=== PATIENT | male | born 1995 | race Caucasian/White ===

== ENCOUNTER 2017-11-24 16:07 | Emergency (ER) | payer BC ==
[~2017-11-24] VITALS: Ht 180.3 cm; Wt 64.0 kg
[2017-11-24 16:26] VITALS: TEMP 36.8
[2017-11-24] MEDS ORDERED: SODIUM CHLORIDE 0.9% 1000ML 1,000 ML IV STA (16:40)
--- NOTE | 2017-11-24 16:45 | EMERGENCY ROOM VISIT NOTE ---
History Report prepared by José Miguel: Gerson Reyes Under the Supervision of: Dr. Erwin Cabral D.O. First contact with patient: 16:31 Chief Complaint: REFERRED BY DOCTOR Stated Complaint: A-FIB, REFERRED BY DOC History of Present Illness The patient is a 22 year old male who presents to the Emergency Room due to intermittent "episodes of atrial fibrillation" that began recently. Patient states he was referred to the ER by his PCP. Patient states he started seeing a psychiatrist for his anxiety a month ago and was prescribed on Strattera and Bupropion. He states he began feeling sick on the medication and decided to go back to his psychiatrist. He states on his follow-up visit he had "a high blood pressure" which he was told to get looked at. Patient states he then stopped taking the Bupropion for a few days which resolved his palpitations. He states after starting back up on it at 1/2 dose the symptoms came back. Patient's states he wears a heart monitor. Patient denies a history of similar symptoms. Patient states he has been in [employer] for 2 months. Family history includes heart problems. Patient denies alcohol or drug use. He denies nausea, vomiting, and thyroid issues. Source of History: patient Onset: Recent Position: chest Timing: intermittent Modifying Factors (Worsening): other (Bupropion) Modifying Factors (Relieving): other (None) Associated Symptoms: No nausea, No vomiting Review of Systems See HPI for pertinent positives & negatives. A total of 10 systems reviewed and were otherwise negative. Past Medical & Surgical Medical Problems: (1) Anxiety Family History Heart disease Social History Smoking Status: Never Smoker Current/Historical Medications Scheduled Antacid (Antacid), 1 TAB PO PRN Atomoxetine (Strattera), 1 CAP PO QAM Bupropion (Wellbutrin), 75 MG PO DAILY Allergies Coded Allergies: No Known Allergies (Unverified , 11/24/17) Physical Exam Vital Signs Date Time Temp Pulse Resp B/P (MAP) Pulse Ox O2 Delivery O2 Flow Rate FiO2 11/24/17 19:09 86 16 122/78 100 11/24/17 18:00 80 18 126/81 100 Room Air 11/24/17 17:04 105 11/24/17 17:00 98 Room Air 11/24/17 17:00 98 Room Air 11/24/17 16:26 36.8 97 18 147/92 98 Room Air Physical Exam GENERAL: Patient is awake, alert, and in no acute distress. Patient is resting comfortably and showing no signs of anxiety EYES: The conjunctivae are clear. The pupils are round and reactive. EARS, NOSE, MOUTH AND THROAT: The nose is without any evidence of any deformity. Mucous membranes are moist. Tongue is midline NECK: The neck is nontender and supple. RESPIRATORY: Normal respiratory effort is noted. There is no evidence of wheezing rhonchi or rales to auscultation. CARDIOVASCULAR: Irregular rhythm to auscultation noted but normal rate. No definite murmur appreciated. There no rubs or gallops normal S1 normal S2 GASTROINTESTINAL: The abdomen is soft. Bowel sounds are present in all quadrants. Abdomen is nontender. MUSCULOSKELETAL/EXTREMITIES: There is no evidence of gross deformity. Full range of motion is noted in the hips and shoulders. SKIN: There is no obvious evidence of any rash. There are no petechiae, pallor or cyanosis noted. NEUROLOGIC: Patient is awake alert and oriented x3. [Strength is symmetric. Patellar reflexes are 2+ bilaterally.] Medical Decision & Procedures ER Provider Diagnostic Interpretation: Radiology results as stated below per my review and radiologist interpretation: SINGLE VIEW CHEST CLINICAL HISTORY: Weakness. Change in mental status. FINDINGS: An AP, portable, upright chest radiograph is obtained. No prior studies are available for comparison at the time of dictation. The cardiomediastinal silhouette is unremarkable. The lungs and pleural spaces are clear. No pneumothorax is seen. The bony thorax is grossly intact. IMPRESSION: No active disease in the chest. Electronically signed by: Dann Mclaughlin M.D. 11/24/2017 5:33 PM Laboratory Results 11/24/17 17:05 Red Blood Count 4.58, Mean Corpuscular Volume 87.1, Mean Corpuscular Hemoglobin 30.6, Mean Corpuscular Hemoglobin Concent 35.1, Mean Platelet Volume 10.2, Neutrophils (%) (Auto) 64.1, Lymphocytes (%) (Auto) 25.2, Monocytes (%) (Auto) 6.1, Eosinophils (%) (Auto) 4.0, Basophils (%) (Auto) 0.3, Neutrophils # (Auto) 4.38, Lymphocytes # (Auto) 1.72, Monocytes # (Auto) 0.42, Eosinophils # (Auto) 0.27, Basophils # (Auto) 0.02 11/24/17 17:05 Test 11/24/17 17:05 White Blood Count 6.83 K/uL (4.8-10.8) Red Blood Count 4.58 M/uL (4.7-6.1) Hemoglobin 14.0 g/dL (14.0-18.0) Hematocrit 39.9 % (42-52) Mean Corpuscular Volume 87.1 fL (80-100) Mean Corpuscular Hemoglobin 30.6 pg (25-34) Mean Corpuscular Hemoglobin Concent 35.1 g/dl (32-36) Platelet Count 207 K/uL (130-400) Mean Platelet Volume 10.2 fL (7.4-10.4) Neutrophils (%) (Auto) 64.1 % Lymphocytes (%) (Auto) 25.2 % Monocytes (%) (Auto) 6.1 % Eosinophils (%) (Auto) 4.0 % Basophils (%) (Auto) 0.3 % Neutrophils # (Auto) 4.38 K/uL (1.4-6.5) Lymphocytes # (Auto) 1.72 K/uL (1.2-3.4) Monocytes # (Auto) 0.42 K/uL (0.11-0.59) Eosinophils # (Auto) 0.27 K/uL (0-0.5) Basophils # (Auto) 0.02 K/uL (0-0.2) RDW Standard Deviation 38.4 fL (36.4-46.3) RDW Coefficient of Variation 12.1 % (11.5-14.5) Immature Granulocyte % (Auto) 0.3 % Immature Granulocyte # (Auto) 0.02 K/uL (0.00-0.02) Prothrombin Time 11.0 SECONDS (9.0-12.0) Prothromb Time International Ratio 1.0 (0.9-1.1) Activated Partial Thromboplast Time 28.4 SECONDS (21.0-31.0) Partial Thromboplastin Ratio 1.1 Anion Gap 5.0 mmol/L (3-11) Est Creatinine Clear Calc Drug Dose 103.9 ml/min Estimated GFR () 121.8 Estimated GFR (Non- 105.1 BUN/Creatinine Ratio 14.5 (10-20) Calcium Level 8.6 mg/dl (8.5-10.1) Magnesium Level 2.3 mg/dl (1.8-2.4) Total Bilirubin 0.4 mg/dl (0.2-1) Direct Bilirubin 0.1 mg/dl (0-0.2) Aspartate Amino Transf (AST/SGOT) 17 U/L (15-37) Alanine Aminotransferase (ALT/SGPT) 21 U/L (12-78) Alkaline Phosphatase 76 U/L (45-117) Troponin I < 0.015 ng/ml (0-0.045) Total Protein 8.4 gm/dl (6.4-8.2) Albumin 4.3 gm/dl (3.4-5.0) Thyroid Stimulating Hormone (TSH) 0.763 uIu/ml (0.300-4.500) Laboratory results per my review. Medications Administered Medications (Trade) Dose Ordered Sig/Stephanie Route Start Time Stop Time Status Last Admin Dose Admin Sodium Chloride 1,000 ml @ 999 mls/hr Q1H1M STAT IV 11/24/17 16:40 11/24/17 17:40 DC 11/24/17 17:12 999 MLS/HR ECG Per My Interpretation Indication: palpitations Rate (beats per minute): 95 Rhythm: sinus rhythm Findings: PAC, other (No acute ST segment abnormalities) Comparison ECG Date: no prior available ED Course 1633: The patient was evaluated in room C7. A complete history and physical examination were performed. 1640: NSS 1,000 ml @ 999 mls/hr IV 1855: Upon reevaluation, the patient is resting comfortably. I discussed the results and treatment plan with him. He verbalized agreement of the treatment plan. He was discharged home. Medical Decision Prior records/ancillary studies reviewed. Triage Nursing notes reviewed. The patient's history was concerning for palpitations. Differential diagnosis: Etiologies such as premature contractions, electrolyte abnormality, cardiac dysrhythmia, thyroid dysfunction, pulmonary embolism, infection, gastrointestinal, as well as others were entertained. The patient is a 22-year-old male who presented to the emergency department for an evaluation of palpitations. The patient had a Holter monitor and was found to have an episode which they thought was consistent with A. fib. He was sent to the emergency department by his primary care physician. The patient was found to be in sinus rhythm. I discussed patient's laboratory and radiographic studies with him. He was treated with IV fluids. I discussed his case with the on-call [facility] bilingual spanish inbound sales. At this time we will try to arrange outpatient follow-up with the patient. He was encouraged to continue all medications as prescribed and keep himself well-hydrated. He is also encouraged to return to the emergency department immediately if symptoms change worsen or the need arises. Medication Reconcilliation Current Medication List: was personally reviewed by me Blood Pressure Screening Patient's blood pressure: Elevated blood pressure Blood pressure disposition: Referred to PCP Consults Time Called: [id number] Consulting Physician: Dr. Zuniga - Affiliate Marketing Coordinator Returned Call: [phone] I discussed the patient's case with Dr. Zuniga. He recommends the outpatient follow-up for the patient. Impression Primary Impression: Palpitations Additional Impression: PAC (premature atrial contraction) Scribe Attestation The scribe's documentation has been prepared under my direction and personally reviewed by me in its entirety. I confirm that the note above accurately reflects all work, treatment, procedures, and medical decision making performed by me. Departure Information Dispostion Home / Self-Care Forms HOME CARE DOCUMENTATION FORM, IMPORTANT VISIT INFORMATION, WORK / SCHOOL INSTRUCTIONS Patient Instructions ED Palpitations, My [facility] Additional Instructions Follow-up with the bilingual spanish inbound sales as scheduled. Continue all other medications as prescribed. Drink plenty clear liquids. Rest and avoid any strenuous activity. Keep herself well-hydrated. Return to the emergency department immediately if symptoms change worsen or the need arises. Problem Qualifiers
[2017-11-24 17:00] VITALS: O2SAT 98; Ht 180.3 cm; Wt 64.0 kg
[2017-11-24 17:23] LABS: BASO % 0.3 %; BASO ABS # 0.02 K/uL (0-0.2); EOS ABS # 0.27 K/uL (0-0.5); HEMATOCRIT 39.9 % (42-52); IG# 0.02 K/uL (0.00-0.02); LYMPH % 25.2 %; LYMPH ABS # 1.72 K/uL (1.2-3.4); MEAN CELL VOLUME 87.1 fL (80-100); MEAN CORPUSCULAR HEMOGLOBIN 30.6 pg (25-34); MEAN CORPUSCULAR HGB CONC 35.1 g/dl (32-36); MEAN PLATELET VOLUME 10.2 fL (7.4-10.4); MONO % 6.1 %; MONO ABS # 0.42 K/uL (0.11-0.59); NEUT % 64.1 %; NEUT ABS # 4.38 K/uL (1.4-6.5); PLATELET COUNT 207 K/uL (130-400); RED CELL DISTRIBUTION WIDTH CV 12.1 % (11.5-14.5); RED CELL DISTRIBUTION WIDTH SD 38.4 fL (36.4-46.3); WHITE BLOOD COUNT 6.83 K/uL (4.8-10.8)
[2017-11-24] MEDS ORDERED: STR40 PO (17:31)
[2017-11-24] MEDS ORDERED: ANT PO (17:31)
[2017-11-24] MEDS ORDERED: BUPR75TA20 PO (17:31)
[2017-11-24 17:34] LABS: PTT PATIENT 28.4 SECONDS (21.0-31.0)
--- NOTE | 2017-11-24 17:34 | DIAGNOSTIC IMAGING REPORT ---
SINGLE VIEW CHEST CLINICAL HISTORY: Weakness. Change in mental status. FINDINGS: An AP, portable, upright chest radiograph is obtained. No prior studies are available for comparison at the time of dictation. The cardiomediastinal silhouette is unremarkable. The lungs and pleural spaces are clear. No pneumothorax is seen. The bony thorax is grossly intact. IMPRESSION: No active disease in the chest. Electronically signed by: Dann Mclaughlin M.D. 11/24/2017 5:33 PM Dictated Date/Time: 11/24/2017 5:32 PM
[2017-11-24 17:53] LABS: ALBUMIN 4.3 gm/dl (3.4-5.0); ALKALINE PHOSPHATASE 76 U/L (45-117); ALT/SGPT 21 U/L (12-78); AST/SGOT 17 U/L (15-37); BLOOD UREA NITROGEN 15 mg/dl (7-18); CALCIUM 8.6 mg/dl (8.5-10.1); CARBON DIOXIDE 30 mmol/L (21-32); CREATININE 1.01 mg/dl (0.60-1.40); GLUCOSE 89 mg/dl (70-99); POTASSIUM 3.4 mmol/L (3.5-5.1); SODIUM 138 mmol/L (136-145); TOTAL PROTEIN 8.4 gm/dl (6.4-8.2)
[2017-11-24 19:09] VITALS: BP 122/78; PULSE 86; O2SAT 100
== END 2017-11-24 19:10 | disposition home or self-care (01) ==
LOC: C.EDB 16:08 → C.EDC 19:10
DX: R00.2 Palpitations (principal); I49.1 Atrial premature depolarization; F41.9 Anxiety disorder, unspecified